=== PATIENT | male | born 1985 | race Hispanic/Latino ===

== ENCOUNTER 2017-11-02 16:34 | Inpatient (IN) | payer MEDICAID ==
--- NOTE | 2017-11-02 17:36 | C.PDOC ---
History Of Present Illness 31 y/o male hx IV heroin and a non productive cough for 1 week presents to the ED for detox. The patient states that today was the last day of use. The patient denies SI and HI thoughts, and hallucinations. Time Seen by Provider: 11/02/17 17:01 Chief Complaint (Nursing): Medical Clearance History Per: Patient History/Exam Limitations: other (substance abuse ) Onset/Duration Of Symptoms: Days Current Symptoms Are (Timing): Still Present Additional History Per: Patient Past Medical History Reviewed: Historical Data, Nursing Documentation, Vital Signs Vital Signs: Last Vital Signs Temp 98.7 F 11/02/17 16:46 Pulse 76 11/02/17 16:46 Resp 20 11/02/17 16:46 BP 113/76 11/02/17 16:46 Pulse Ox 100 11/02/17 18:48 - Medical History PMH: Atrial Fibrillation Surgical History: No Surg Hx Family History: States: No Known Family Hx - Social History Hx Alcohol Use: Yes Hx Substance Use: Yes - Immunization History Hx Tetanus Toxoid Vaccination: No Hx Influenza Vaccination: No Hx Pneumococcal Vaccination: No Review Of Systems Except As Marked, All Systems Reviewed And Found Negative. Constitutional: Negative for: Fever Cardiovascular: Negative for: Chest Pain Respiratory: Positive for: Cough (nonproductive for 1 week ) Gastrointestinal: Negative for: Nausea, Vomiting, Abdominal Pain Skin: Negative for: Rash Psych: Positive for: Other (no HI thoughts, and hallucinations). Negative for: Suicidal ideation Physical Exam - Physical Exam Appears: Non-toxic Skin: Warm, Dry Head: Atraumatic, Normacephalic Eye(s): bilateral: Normal Inspection Oral Mucosa: Moist Throat: Normal, No Erythema Neck: Supple Chest: Symmetrical, No Tenderness Cardiovascular: Rhythm Regular Respiratory: Normal Breath Sounds, No Rales, No Rhonchi Gastrointestinal/Abdominal: Soft, No Tenderness, No Guarding, No Rebound Back: No CVA Tenderness Extremity: No Tenderness, Capillary Refill (2<sec.), Other (track esteban on both arms ) Neurological/Psych: Oriented x3, Normal Motor, Normal Sensation, Normal Reflexes ED Course And Treatment - Laboratory Results Result Diagrams: 11/02/17 18:25 11/02/17 18:25 O2 Sat by Pulse Oximetry: 100 (RA) - Other Rad Chest X-ray X-Ray: Viewed By Me Interpretation: HISTORY: Detox/Psy. COMPARISON: None available. TECHNIQUE: Chest PA and lateral. FINDINGS: LUNGS: No focal consolidation. Please note that chest x-ray has limited sensitivity for the detection of pulmonary masses. PLEURA: No significant pleural effusion identified. No definite pneumothorax . CARDIOVASCULAR: The cardiomediastinal silhouette appears within normal limits of size. OSSEOUS STRUCTURES: No acute osseous abnormality identified. VISUALIZED UPPER ABDOMEN: Unremarkable. OTHER FINDINGS: None. IMPRESSION: No focal consolidation, significant pleural effusion, or definite pneumothorax identified. Progress Note: Chest X-ray was performed. Patient is afebrile and asymptomatic. Disposition - Disposition Disposition Time: 19:00 Condition: STABLE Forms: appening (Slovenian) - Clinical Impression Clinical Impression: Substance abuse, Alcohol abuse - Scribe Statement The provider has reviewed the documentation as recorded by the Vandana Coker Physician Patient Turnover Patient Signed Over To: Lenka Ferrari Handoff Comments: pending labs and crisis evaluation
--- NOTE | 2017-11-02 18:21 | RAD ---
HISTORY: Detox/Psy COMPARISON: None available. TECHNIQUE: Chest PA and lateral FINDINGS: LUNGS: No focal consolidation. Please note that chest x-ray has limited sensitivity for the detection of pulmonary masses. PLEURA: No significant pleural effusion identified. No definite pneumothorax . CARDIOVASCULAR: The cardiomediastinal silhouette appears within normal limits of size. OSSEOUS STRUCTURES: No acute osseous abnormality identified. VISUALIZED UPPER ABDOMEN: Unremarkable. OTHER FINDINGS: None. IMPRESSION: No focal consolidation, significant pleural effusion, or definite pneumothorax identified.
[2017-11-02 18:28] LABS: BASO % 0.5 % (0.0-2.0); EOS # 0.2 K/uL (0.0-0.7); EOS % 2.7 % (0.0-4.0); HEMOGLOBIN 13.6 g/dL (12.0-18.0); LYMPH # 3.2 K/uL (1.0-4.3); MEAN CELL VOLUME 90.8 fL (80.0-94.0); MEAN CORPUSCULAR HEMOGLOBIN 31.1 pg (27.0-31.0); MEAN CORPUSCULAR HGB CONC 34.2 g/dL (33.0-37.0); MEAN PLATELET VOLUME 7.6 fL (7.2-11.7); MONO # 0.5 K/uL (0.0-0.8); MONO % 5.4 % (0.0-10.0); NEUT # 4.5 K/uL (1.8-7.0); NEUT % 53.4 % (50.0-75.0); RBC 4.37 Mil/uL (4.40-5.90); RED CELL DISTRIBUTION WIDTH 13.4 % (11.5-14.5); WHITE BLOOD COUNT 8.4 K/uL (4.8-10.8)
[2017-11-02 18:40] LABS: ALB/GLOB RATIO 1.3 (1.0-2.1); ALBUMIN 4.2 g/dL (3.5-5.0); ALT/SGPT 30 U/L (21-72); AST/SGOT 21 U/L (17-59); BLOOD UREA NITROGEN 13 mg/dL (9-20); CALCIUM 8.5 mg/dl (8.6-10.4); GFR AFRICAN-AMERICAN > 60; GFR NON-AFRICAN AMERICAN > 60
[2017-11-02 19:01] LABS: URINE BILIRUBIN NEGATIVE (NEGATIVE); URINE BLOOD NEGATIVE (NEGATIVE); URINE CLARITY Clear (Clear); URINE COLOR Yellow (YELLOW); URINE GLUCOSE (UA) NORMAL (Normal); URINE LEUKOCYTE ESTERASE NEG Leu/uL (Negative); URINE NITRATE NEGATIVE (NEGATIVE); URINE PROTEIN NEGATIVE (NEGATIVE); URINE UROBILINOGEN NORMAL mg/dL (0.2-1.0)
[2017-11-02 19:03] LABS: BARBITURATES, UR NEGATIVE (NEGATIVE); PHENCYCLIDINE, UR NEGATIVE (NEGATIVE)
[2017-11-02 19:06] LABS: BENZODIAZEPINES, UR POSITIVE (NEGATIVE); OPIATES, UR POSITIVE (NEGATIVE)
--- NOTE | 2017-11-02 20:22 | PCM.BM ---
<Roxana Askew - Last Filed: 11/02/17 20:21> Treatment Plan Problems - Problems identified on initial assessmt Potential for alcohol withdrawal Date Initiated: 11/02/17 Time Initiated: 20:21 Assessment reference: NA Status: Active Priority: 1 Potential for opiate withdrawal Date Initiated: 11/02/17 Time Initiated: 20:21 Assessment reference: NA Status: Active Priority: 2 Treatment assets and liabiliti Patient Assests: ADL independent, negotiates basic needs, cognitively intact Patient Liabilities: substance abuse (ETOH,OPIATES) - Milieu Protocol Maintain good personal hygiene: daily Encourage regular showers, daily Remind patient to perform daily oral care, daily Assist patient to perform ADL's Conduct patient checks and document Observation sheet: Q15 minutes Maintain personal safety: every shift Educate patient to report safety concerns to staff, every shift Monitor environment for contraband/sharps Medication safety: Monitor for expected outcome, potential side effects: every shift, Assess barriers to learning: every shift, Assess readiness for medication education: every shift <Tamia Bajwa - Last Filed: 11/05/17 00:13> - Diagnosis (1) Opioid use disorder, severe, dependence Status: Acute Interventions: 11/05/17 00:13 * Assess 7x/week regarding severity of withdrawal * Educate regarding risks, benefits, side effects and alternatives of medications * Use Motivational Interviewing for abstinence * Use CBT for relapse prevention * Medication management for withdrawal symptoms * Encourage medication assisted treatment * (2) Alcohol abuse Status: Acute Interventions: 11/05/17 00:13 * Assess 7x/week regarding severity of withdrawal * Educate regarding risks, benefits, side effects and alternatives of medications * Use Motivational Interviewing for abstinence * Use CBT for relapse prevention * Medication management for withdrawal symptoms * Encourage medication assisted treatment *
[2017-11-02] MEDS ORDERED: Aluminum Hydroxide/Magnesium Hydroxide Susp (30 mL) PO PRN (20:33)
--- NOTE | 2017-11-03 13:53 | PCM.PSYCH ---
Initial Psychiatric Evaluation - Initial Psychiatric Evaluation Type of Admission: Voluntary Legal Status: Capacity Chief Complaint (in patient's own words): "Heroin" History of Present Illness and Precipitating Events: The pt is seen. chart reviewed and case discussed He is a 31 y/o WM, single, no child, no job, lives with GM and father. He is using 30 bags IV heroin "on and off" 11 years. He also uses cocaine iv but less, and alcohol various amounts x 2 years. Denies alcohol wdw, seizures, DTs but has wdw sxs from heroin Smokes 1.5 ppd cigarettes Denies other drugs Detox 3x, rehab 3-4 x and longest sobriety 1 year No psych sxs reported Past psych hx: Hx of ADHD but no meds, stable Family psych hx: Fa, uncle and GF had alcohol problems Medical hx: Past hx of Afib but stable now. No other illness, hep C negative Current Medications: Active Medications Generic Name Dose Route Start Last Admin Trade Name Freq PRN Reason Stop Dose Admin Al Hydrox/Mg Hydrox/Simethicone 30 ml 11/02/17 20:33 Maalox 30 Ml PO TID PRN Indigestion / Heartburn Aspirin 81 mg 11/03/17 10:00 11/03/17 10:18 Aspirin Chewable PO 81 mg DAILY SHARI Administration Clonidine HCl 0.1 mg 11/02/17 20:33 Catapres PO Q8 PRN COWS Score More or Equal to 5 Hydroxyzine HCl 50 mg 11/02/17 20:34 11/02/17 21:25 Atarax PO 50 mg Q6H PRN Administration Anxiety Ibuprofen 600 mg 11/02/17 20:34 Motrin Tab PO Q6H PRN Pain, moderate (4-7) Loperamide HCl 2 mg 11/02/17 20:33 Imodium PO Q8 PRN Diarrhea Nicotine 1 patch 11/03/17 10:00 11/03/17 10:18 Nicoderm Cq TD 1 patch DAILY SHARI Administration Ondansetron HCl 4 mg 11/02/17 20:33 Zofran Tab PO Q8 PRN Nausea/Vomiting Trazodone HCl 100 mg 11/02/17 20:34 11/02/17 21:25 Desyrel PO 100 mg HS PRN Administration Insomnia Past Psychiatric History - Past Psychiatric History Previous Treatment History: None Pertinent Medical Hx (Current Medical&Sleep Prob, Allergies): Allergies Allergy/AdvReac Type Severity Reaction Status Date / Time No Known Allergies Allergy Unverified 11/02/17 16:51 No Known Home Med 11/02/17 Review of Systems - Neurological Neurological: UNREMARKABLE - Psychiatric Psychiatric: Abnormal Sleep Pattern, Anxiety, Difficulty Concentrating. absent : Hallucinations, Homicidal Ideation, Suicidal Ideation Mental Status Examination - Personal Presentation Personal Presentation: Looks stated age - Affect Affect: Constricted - Motor Activity Motor Activity: Calm - Reliability in Providing Information Reliability in Providing Information: Good - Speech Speech: Organized - Mood Mood: Anxious - Formal Thought Process Formal Thought Process: No Impairment - Cognitive Functions Orientation: Person, Place, Situation, Time Sensorium: Alert Attention/Concentration: Attentive Estimate of Intelligence: Average Judgement: Intact, as evidence by: Insight regarding need for hospitalization Memory: Recent intact, as evidence by: Ability to recall events of the day, Remote intact, as evidenced by: Abilit to recall sig. life events - Risk Risk: Withdrawal, Diminished functioning - Strength & Assets Inventory Strength & Assets Inventory: Cooperative - Limitations Limitations: Other DSM 5 DX - DSM 5 DSM 5 Diagnosis: Opioid withdrawal Opioid use d/o -severe Cocaine use d/o - severe Tobacco use d/o - severe Alcohol use d/o -moderate - Recommended/Plan of Treatment Treatment Recommendations and Plan of Treatment: Subutex detox As needed medications All risks, benefits and alternatives of medications, including no medications, discussed and the patient understood and agreed. Attend groups and activities Supportive therapy and psychoeducation [place] for abstinence CBT for relapse prevention Encourage MAT Refer to rehab or IOP Attend self-help groups as well 34 min Projected ELOS: 4-5 days Prognosis: good Discharge Plan and Discharge Criteria: Rehab at [facility]
[2017-11-03] MEDS ORDERED: Buprenorphine Hydrochloride 2 mg SL ONE ×2 (15:27→16:30)
[2017-11-04] MEDS: Buprenorphine Hydrochloride 2 mg SL SCH (09:39)
--- NOTE | 2017-11-04 13:08 | PCM.PYCHPN ---
Psychiatric Progress Note - Psychiatric Progress Note Patient seen today, length of contact: 16 min Patient Chief Complaint: "I can't sleep, have restless leg" Problems Identified/Issues Discussed: The pt is seen, chart reviewed, case discussed with staff. The pt is compliant with medications and reports no side-effects. Symptoms are improving but needs more time to stabilize. After care discussed, support and psychoeducation given. Medication Change: Yes (detox changes daily) Medical Record Reviewed: Yes Mental Status Examination - Cognitive Function Orientation: Person, Place, Situation, Time - Mood Mood: Anxious - Affect Affect: Constricted - Speech Speech: Appropriate - Formal Thought Process Formal Thought Process: No Impairment - Suicidal Ideation Suicidal Ideation: No - Homicidal Ideation Homicidal Ideation: No Goal/Treatment Plan - Goal/Treatment Plan Need for Continued Stay: Discharge may exacerbated symptoms, Severe functional impairment Progress Toward Problem(s) and Goals/Treatment Plan: Subutex detox As needed medications All risks, benefits and alternatives of medications, including no medications, discussed and the patient understood and agreed. Attend groups and activities Supportive therapy and psychoeducation [place] for abstinence CBT for relapse prevention Encourage MAT Refer to rehab or IOP Attend self-help groups as well
[2017-11-05] MEDS: Buprenorphine Hydrochloride 2 mg SL SCH (09:33)
--- NOTE | 2017-11-05 10:43 | CARD ---
APPROVED REPORT EKG Measurement Heart [id number] <Conclusion> Normal sinus rhythm Normal ECG
--- NOTE | 2017-11-05 14:00 | PCM.PYCHPN ---
Psychiatric Progress Note - Psychiatric Progress Note Patient seen today, length of contact: 16 min Patient Chief Complaint: "I slept better" Problems Identified/Issues Discussed: The pt is seen, chart reviewed, case discussed with staff. Support given, CBT and KS used briefly No new symptoms reported, improving slowly and needs more time No SEs from medications, risks discussed. After care discussed Medication Change: Yes (detox changes daily) Medical Record Reviewed: Yes Mental Status Examination - Cognitive Function Orientation: Person, Place, Situation, Time Memory: Intact Attention: WNL Concentration: WNL Association: WNL Fund of Knowledge: WNL - Mood Mood: Anxious - Affect Affect: Constricted - Speech Speech: Appropriate - Formal Thought Process Formal Thought Process: No Impairment - Suicidal Ideation Suicidal Ideation: No - Homicidal Ideation Homicidal Ideation: No Goal/Treatment Plan - Goal/Treatment Plan Need for Continued Stay: Discharge may exacerbated symptoms, Severe functional impairment Progress Toward Problem(s) and Goals/Treatment Plan: Subutex detox As needed medications All risks, benefits and alternatives of medications, including no medications, discussed and the patient understood and agreed. Attend groups and activities Supportive therapy and psychoeducation [place] for abstinence CBT for relapse prevention Encourage MAT Refer to rehab or IOP Attend self-help groups as well
[2017-11-05 15:41] VITALS: RESP 18
--- NOTE | 2017-11-06 08:41 | PCM.PYCHDC ---
Mental Status Examination - Mental Status Examination Orientation: Person, Place, Situation, Time Memory: Intact Mood: Anxious Affect: Constricted Speech: Appropriate Attention: WNL Concentration: WNL Association: WNL Fund of Knowledge: WNL Formal Thought Process: No Impairment Suicidal Ideation: No Current Homicidal Ideation?: No Discharge Summary - Discharge Note Reason for Hospitalization: Alcohol and opioid detox Consultations:: List each consultation separately and include: 1. Reason for request. 2. Findings. 3. Follow-up Summary of Hospital Course include:: 1. Description of specific treatment plan utilized for patients during their course of treatmen. 2. Summarize the time- course for resolution of acute symptoms and/or regressed behaviors. 3. Describe issues identified and worked on during hospitalization. 4. Describe medication utilized. 5. Describe medical problems identified and treated. 6. Reassessment of suicide risk Summary of Hospital Course: The pt is seen. chart reviewed and case discussed On admission: He is a 31 y/o WM, single, no child, no job, lives with GM and father. He is using 30 bags IV heroin "on and off" 11 years. He also uses cocaine iv but less, and alcohol various amounts x 2 years. Denies alcohol wdw, seizures, DTs but has wdw sxs from heroin Smokes 1.5 ppd cigarettes Denies other drugs Detox 3x, rehab 3-4 x and longest sobriety 1 year No psych sxs reported Past psych hx: Hx of ADHD but no meds, stable Family psych hx: Fa, uncle and GF had alcohol problems Medical hx: Past hx of Afib but stable now. No other illness, hep C negative Hospital course: The pt was admitted and started on treatment with psychotherapy, support, psychoeducation and medications. UT and CBT used. The pt attended groups and activities, as well as milieu therapy. All the risks and benefits of medications are discussed and the patient understood and agreed. He didn't need alcohol detox The pt improved with the treatments provided. After care discussed with the patient. He went to [facility] in - Final Diagnosis (DSM 5) Condition upon Discharge: IMPROVED DSM 5: Opioid withdrawal Opioid use d/o -severe Cocaine use d/o - severe Tobacco use d/o - severe Alcohol use d/o -moderate Disposition: REHAB FACILITY/REHAB UNIT Follow-up Treatment Plan: Continue below medications after discharge. Follow after care plan as discussed. Use relapse prevention skills Return to ER or call 911 if suicidal, homicidal or symptoms relapse. Stay away from stress, alcohol and drugs. See primary doctor regularly and get labs. Prescriptions/Medication Reconciliation: Aspirin [Aspirin Chewable] 81 mg PO DAILY #30 chew Gabapentin [Neurontin] 300 mg PO BID #60 cap QUEtiapine [Seroquel] 100 mg PO HS #30 tab - Smoking Cessation Smoking Cessation Medication prescribed: No - Antipsychotic Medications Pt discharged on 2 or more routine antipsychotic medications: No
[2017-11-06] MEDS: Buprenorphine Hydrochloride 2 mg SL SCH (10:11)
[2017-11-06 10:34] VITALS: BP 118/79; PULSE 85; TEMP 98.9; O2SAT 97
== END 2017-11-06 10:15 | disposition home or self-care (01) | DRG 745 ==
LOC: C.ER 16:34 → C.7D 19:26
PROVIDERS: ADMIT Psychiatry & Neurology Psychiatry; ATTEND Psychiatry & Neurology Psychiatry
PROC: HZ2ZZZZ Detoxification Services for Substance Abuse Treatment (ICD-10-PCS; principal; 2017-11-03)
PROC: HZ52ZZZ Individual Psychotherapy for Substance Abuse Treatment, Cognitive-Behavioral (ICD-10-PCS; 2017-11-03)
PROC: HZ42ZZZ Group Counseling for Substance Abuse Treatment, Cognitive-Behavioral (ICD-10-PCS; 2017-11-03)
PROC: HZ59ZZZ Individual Psychotherapy for Substance Abuse Treatment, Supportive (ICD-10-PCS; 2017-11-03)
PROC: HZ56ZZZ Individual Psychotherapy for Substance Abuse Treatment, Psychoeducation (ICD-10-PCS; 2017-11-03)
PROC: HZ46ZZZ Group Counseling for Substance Abuse Treatment, Psychoeducation (ICD-10-PCS; 2017-11-03)
DX: F11.23 Opioid dependence with withdrawal (principal); F14.20 Cocaine dependence, uncomplicated; I48.91 Unspecified atrial fibrillation; F17.210 Nicotine dependence, cigarettes, uncomplicated; F10.10 Alcohol abuse, uncomplicated; Y90.0 Blood alcohol level of less than 20 mg/100 ml

== ENCOUNTER 2017-11-26 15:18 | Emergency (ER) | payer MEDICAID ==
[2017-11-26 15:44] VITALS: BP 142/86; PULSE 109; RESP 20; TEMP 98.8; O2SAT 98
--- NOTE | 2017-11-26 16:20 | C.PDOC ---
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 Patient states he slipped on wet floor and twisted his right knee. Patient states he felt a pop and is complaining of "discomfort" to the area. Denies direct trauma, instability, swelling, or Hx of chronic right knee pain. 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 PS SLIPPED ON WET FLOOR, TWISTED R KNEE. DENIES DIRECT TRAUMA. FELT POP. CO "DISCOMFORT" TO AREA. DENIES INSTABLITY, SWELL. DENIES HO CHRONIC R KNEE PAIN EXAM NAD EXT R KNEE AROM WO DIFF. MILD ANT EFFUSION. AROM WO DIFF. NO INSTABILITY. NO FOCAL TEND SKIN INTACT NO ERYTHEMA ATRAUM GAIT ALMOST FULL WT BEAR WO DIF Time Seen by Provider: 11/26/17 16:00 Chief Complaint (Nursing): Lower Extremity Problem/Injury History/Exam Limitations: no limitations Onset/Duration Of Symptoms: Mins, Sudden Onset Current Symptoms Are (Timing): Still Present Recent travel outside of the [place]: No - Knee Description Of Injury: Twisted Past Medical History Reviewed: Historical Data, Nursing Documentation, Vital Signs Vital Signs: Last Vital Signs Temp 98.8 F 11/26/17 15:42 Pulse 109 H 11/26/17 15:42 Resp 20 11/26/17 15:42 BP 142/86 11/26/17 15:42 Pulse Ox 98 11/26/17 16:20 - Medical History PMH: Atrial Fibrillation - [facility] Procedures DETOXIFICATION SERVICES FOR SUBSTANCE ABUSE TREATMENT (11/02/17) GROUP HEAD SAWYER FOR SUBSTANCE ABUSE TREATMENT, PSYCHOEDUCATION (11/02/17) GROUP HEAD SAWYER FOR SUBSTANCE ABUSE, COGNITIVE BEHAVIORAL (11/02/17) INDIV PSYCHOTHERAPY FOR SUBSTANCE ABUSE TREATMENT, SUPPORT (11/02/17) INDIV PSYCHOTHERAPY FOR SUBSTANCE ABUSE, COGNITIV BEHAVIORAL (11/02/17) INDIV PSYCHOTHERAPY FOR SUBSTANCE ABUSE, PSYCHOEDUCATION (11/02/17) Family History: States: Unknown Family Hx - Social History Hx Alcohol Use: No Hx Substance Use: Yes (RECOVERING ADDICT) - Immunization History Hx Tetanus Toxoid Vaccination: No Hx Influenza Vaccination: No Hx Pneumococcal Vaccination: No Review Of Systems Except As Marked, All Systems Reviewed And Found Negative. Musculoskeletal: Positive for: Leg Pain Skin: Negative for: Lesions, Bruising Neurological: Negative for: Weakness, Numbness Physical Exam - Physical Exam Appears: Non-toxic, No Acute Distress Skin: Normal Color, Warm, Dry Head: Atraumatic, Normacephalic Eye(s): bilateral: Normal Inspection Extremity: Normal ROM (x4), Capillary Refill (<2 seconds), Other (Right knee with mild anterior effusion. No instability, erythema, or focal tenderness.) Pulses: Left Dorsalis Pedis: Normal, Right Dorsalis Pedis: Normal Neurological/Psych: Oriented x3, Normal Speech, Normal Motor, Normal Sensation Gait: Steady (Almost full weight bearing without difficulty) ED Course And Treatment O2 Sat by Pulse Oximetry: 98 Medical Decision Making Medical Decision Making: Plan: * Motrin Disposition Counseled Patient/Family Regarding: Diagnosis, Need For Followup, Rx Given - Disposition Referrals: [facility] [Outside] [facility] [Outside] Disposition: HOME/ ROUTINE Disposition Time: 16:19 Condition: GOOD Prescriptions: Naproxen [Naprosyn] 1 tab PO BID PRN #25 tab PRN Reason: Pain Instructions: Knee Sprain (ED) Forms: [facility] (Kiswahili), Work Excuse - Clinical Impression Clinical Impression: Knee sprain - Scribe Statement The provider has reviewed the documentation as recorded by the Scribe Simon Sheets All medical record entries made by the Scribe were at my direction and personally dictated by me. I have reviewed the chart and agree that the record accurately reflects my personal performance of the history, physical exam, medical decision making, and the department course for this patient. I have also personally directed, reviewed, and agree with the discharge instructions and disposition.
== END 2017-11-26 16:31 | disposition home or self-care (01) ==
LOC: C.ER 15:18
DX: S83.91XA Sprain of unspecified site of right knee, initial encounter (principal); W01.0XXA Fall on same level from slipping, tripping and stumbling without subsequent striking against object, initial encounter; I48.91 Unspecified atrial fibrillation

== ENCOUNTER 2018-02-02 09:35 | Emergency (ER) | payer MEDICAID ==
[2018-02-02 10:06] VITALS: BP 131/78; PULSE 98; RESP 16; TEMP 98
--- NOTE | 2018-02-02 10:06 | C.PDOC ---
History Of Present Illness 32 y/o male presents to ED requesting detox from heroin. Patient states last used was earlier today and denies history of withdrawal seizures, suicidal ideation, homicidal ideation or any physical complaints at this time. Time Seen by Provider: 02/02/18 10:04 Chief Complaint (Nursing): Substance Abuse History Per: Patient History/Exam Limitations: no limitations Onset/Duration Of Symptoms: Days Current Symptoms Are (Timing): Still Present Suicide/Self Injury Attempted (Context): None Past Medical History Reviewed: Historical Data, Nursing Documentation, Vital Signs Vital Signs: Last Vital Signs Temp 98.0 F 02/02/18 10:03 Pulse 98 H 02/02/18 10:03 Resp 16 02/02/18 10:03 BP 131/78 02/02/18 10:03 Pulse Ox 97 02/02/18 10:03 - Medical History PMH: Atrial Fibrillation Surgical History: No Surg Hx - [facility] Procedures DETOXIFICATION SERVICES FOR SUBSTANCE ABUSE TREATMENT (11/02/17) GROUP FOOD AND DRINK FACTORY WORKERS FOR SUBSTANCE ABUSE TREATMENT, PSYCHOEDUCATION (11/02/17) GROUP FOOD AND DRINK FACTORY WORKERS FOR SUBSTANCE ABUSE, COGNITIVE BEHAVIORAL (11/02/17) INDIV PSYCHOTHERAPY FOR SUBSTANCE ABUSE TREATMENT, SUPPORT (11/02/17) INDIV PSYCHOTHERAPY FOR SUBSTANCE ABUSE, COGNITIV BEHAVIORAL (11/02/17) INDIV PSYCHOTHERAPY FOR SUBSTANCE ABUSE, PSYCHOEDUCATION (11/02/17) Family History: States: No Known Family Hx - Social History Hx Alcohol Use: No Hx Substance Use: Yes (RECOVERING ADDICT) - Immunization History Hx Tetanus Toxoid Vaccination: No Hx Influenza Vaccination: No Hx Pneumococcal Vaccination: No Review Of Systems Constitutional: Negative for: Fever, Chills Gastrointestinal: Negative for: Nausea, Vomiting Skin: Negative for: Rash Psych: Negative for: Anxiety, Withdrawal Physical Exam - Physical Exam Appears: Non-toxic, No Acute Distress Skin: Warm, Dry Head: Atraumatic, Normacephalic Eye(s): bilateral: Normal Inspection Oral Mucosa: Moist Neck: Normal ROM, Supple Cardiovascular: Rhythm Regular Respiratory: Normal Breath Sounds, No Rales, No Rhonchi, No Wheezing Gastrointestinal/Abdominal: Soft, No Tenderness, No Guarding, No Rebound Extremity: Normal ROM, Capillary Refill (<2 seconds) Neurological/Psych: Oriented x3, Normal Speech, Normal Cognition ED Course And Treatment O2 Sat by Pulse Oximetry: 100 (RA) Pulse Ox Interpretation: Normal Medical Decision Making Medical Decision Making: Plan: D/w crisis , no detox beds available. Patient d/c and instructed to call detox tomorrow Disposition Counseled Patient/Family Regarding: Diagnosis, Need For Followup - Disposition Disposition: HOME/ ROUTINE Disposition Time: 10:05 Condition: STABLE Additional Instructions: Follow up as indicated by the crisis team. You can call Shanel at [phone] Instructions: Drug Abuse and Drug Addiction (DC) Forms: General Discharge Instructions, Work Excuse - POA Present On Arrival: None - Clinical Impression Clinical Impression: Drug dependence - Scribe Statement The provider has reviewed the documentation as recorded by the Scribe Jesus Adams All medical record entries made by the Scribe were at my direction and personally dictated by me. I have reviewed the chart and agree that the record accurately reflects my personal performance of the history, physical exam, medical decision making, and the department course for this patient. I have also personally directed, reviewed, and agree with the discharge instructions and disposition.
[2018-02-02 16:53] VITALS: O2SAT 100
== END 2018-02-02 10:15 | disposition home or self-care (01) ==
LOC: C.ER 09:35
DX: F19.20 Other psychoactive substance dependence, uncomplicated (principal)

== ENCOUNTER 2018-02-09 17:54 | Inpatient (IN) | payer MEDICAID ==
[2018-02-09 19:17] LABS: BASO % 0.5 % (0.0-2.0); EOS # 0.1 K/uL (0.0-0.7); EOS % 1.3 % (0.0-4.0); HEMOGLOBIN 14.6 g/dL (12.0-18.0); LYMPH # 2.7 K/uL (1.0-4.3); LYMPH % 32.7 % (20.0-40.0); MEAN CELL VOLUME 92.3 fL (80.0-94.0); MEAN CORPUSCULAR HEMOGLOBIN 31.6 pg (27.0-31.0); MEAN CORPUSCULAR HGB CONC 34.3 g/dL (33.0-37.0); MEAN PLATELET VOLUME 7.4 fL (7.2-11.7); MONO # 0.6 K/uL (0.0-0.8); MONO % 7.1 % (0.0-10.0); NEUT # 4.7 K/uL (1.8-7.0); NEUT % 58.4 % (50.0-75.0); NRBC % 0.1 % (0.0-2.0); RBC 4.62 Mil/uL (4.40-5.90); RED CELL DISTRIBUTION WIDTH 13.2 % (11.5-14.5); WHITE BLOOD COUNT 8.1 K/uL (4.8-10.8)
[2018-02-09 19:30] LABS: ALB/GLOB RATIO 1.2 (1.0-2.1); ALBUMIN 4.3 g/dL (3.5-5.0); ALT/SGPT 18 U/L (21-72); AST/SGOT 21 U/L (17-59); BLOOD UREA NITROGEN 13 mg/dL (9-20); GFR AFRICAN-AMERICAN > 60; GFR NON-AFRICAN AMERICAN > 60
--- NOTE | 2018-02-09 19:39 | C.PDOC ---
History Of Present Illness 32 year old male presents to the ED requesting detox for alcohol. Patient was prescreened prior to coming to the ED. Patient denies SI/HI, hallucinations, CP , SOB, abdominal pain. Time Seen by Provider: 02/09/18 18:19 Chief Complaint (Nursing): Substance Abuse History Per: Patient History/Exam Limitations: intoxication Onset/Duration Of Symptoms: Hrs Current Symptoms Are (Timing): Still Present Suicide/Self Injury Attempted (Context): None Modifying Factor(s): Alcohol Associated Symptoms: denies: Depression, Suicidal Thoughts, Suicidal Plan Recent travel outside of the [place]: No Additional History Per: Patient Past Medical History Reviewed: Historical Data, Nursing Documentation, Vital Signs Vital Signs: Last Vital Signs Temp 97.4 F L 02/09/18 18:05 Pulse 101 H 02/09/18 18:05 Resp 16 02/09/18 18:05 BP 106/60 02/09/18 18:05 Pulse Ox 95 02/09/18 19:39 - Medical History PMH: Atrial Fibrillation Denies: Diabetes, Hepatitis, HIV, HTN, Seizures, Sexually Transmitted Disease Surgical History: No Surg Hx - [facility] DETOXIFICATION SERVICES FOR SUBSTANCE ABUSE TREATMENT (11/02/17) GROUP ADVERTISING WRITER FOR SUBSTANCE ABUSE TREATMENT, PSYCHOEDUCATION (11/02/17) GROUP ADVERTISING WRITER FOR SUBSTANCE ABUSE, COGNITIVE BEHAVIORAL (11/02/17) INDIV PSYCHOTHERAPY FOR SUBSTANCE ABUSE TREATMENT, SUPPORT (11/02/17) INDIV PSYCHOTHERAPY FOR SUBSTANCE ABUSE, COGNITIV BEHAVIORAL (11/02/17) INDIV PSYCHOTHERAPY FOR SUBSTANCE ABUSE, PSYCHOEDUCATION (11/02/17) Family History: States: Unknown Family Hx - Social History Hx Alcohol Use: Yes Hx Substance Use: Yes (RECOVERING ADDICT) - Immunization History Hx Tetanus Toxoid Vaccination: No Hx Influenza Vaccination: No Hx Pneumococcal Vaccination: No Review Of Systems Constitutional: Negative for: Fever, Chills Cardiovascular: Negative for: Chest Pain Respiratory: Negative for: Shortness of Breath Skin: Negative for: Rash Neurological: Negative for: Weakness, Numbness Psych: Negative for: Depression, Suicidal ideation Physical Exam - Physical Exam Appears: Non-toxic, No Acute Distress, Other (AOB, thin) Skin: Normal Color, Warm, Dry Head: Atraumatic, Normacephalic Eye(s): bilateral: Normal Inspection Nose: No Discharge Oral Mucosa: Moist Neck: Normal ROM, Supple Chest: Symmetrical Cardiovascular: Rhythm Regular, No Murmur Respiratory: Normal Breath Sounds, No Rales, No Rhonchi, No Wheezing Gastrointestinal/Abdominal: Soft, No Tenderness, No Guarding, No Rebound Extremity: Normal ROM, No Tenderness, No Swelling Neurological/Psych: Oriented x3 Gait: Steady ED Course And Treatment - Laboratory Results Result Diagrams: 02/09/18 19:12 02/09/18 19:12 Lab Interpretation: Abnormal (ETOH 87) O2 Sat by Pulse Oximetry: 95 (ON RA) Pulse Ox Interpretation: Normal Reevaluation Time: 20:35 Reassessment Condition: Improved - Physician Consult Information Outcome Of Conversation: 2030: d/w Crisis, ok to Detox Medical Decision Making Medical Decision Making: Plan: * Labs * UA * Crisis Disposition Doctor Will See Patient In The: Hospital Counseled Patient/Family Regarding: Studies Performed, Diagnosis - Disposition Disposition: HOSPITALIZED Disposition Time: 20:35 Condition: GOOD Forms: [facility] (Belarusian) - Clinical Impression Clinical Impression: Alcohol abuse - Scribe Statement The provider has reviewed the documentation as recorded by the Scribe Juan Jose Villegas All medical record entries made by the Scribe were at my direction and personally dictated by me. I have reviewed the chart and agree that the record accurately reflects my personal performance of the history, physical exam, medical decision making, and the department course for this patient. I have also personally directed, reviewed, and agree with the discharge instructions and disposition.
[2018-02-09 20:08] LABS: URINE BACTERIA OCC (<OCC); URINE BILIRUBIN NEGATIVE (NEGATIVE); URINE BLOOD NEGATIVE (NEGATIVE); URINE CLARITY Hazy (Clear); URINE COLOR Yellow (YELLOW); URINE GLUCOSE (UA) NORMAL (Normal); URINE LEUKOCYTE ESTERASE NEG Leu/uL (Negative); URINE PROTEIN NEGATIVE (NEGATIVE)
[2018-02-09 20:34] LABS: BARBITURATES, UR NEGATIVE (NEGATIVE); PHENCYCLIDINE, UR NEGATIVE (NEGATIVE)
[2018-02-09 20:38] LABS: BENZODIAZEPINES, UR POSITIVE (NEGATIVE); OPIATES, UR POSITIVE (NEGATIVE)
--- NOTE | 2018-02-09 20:49 | PCM.BM ---
<Manasa Christianson - Last Filed: 02/09/18 20:48> Treatment Plan Problems - Problems identified on initial assessmt potiential for opiate withdrawal Date Initiated: 02/09/18 Time Initiated: 20:48 Assessment reference: NA Status: Active Treatment assets and liabiliti Patient Assests: ADL independent, physically healthy, negotiates basic needs, cognitively intact Patient Liabilities: substance abuse - Milieu Protocol Maintain good personal hygiene: daily Encourage regular showers, daily Remind patient to perform daily oral care, daily Assist patient to perform ADL's Maintain personal safety: every shift Educate patient to report safety concerns to staff, every shift Monitor environment for contraband/sharps Medication safety: Monitor for expected outcome, potential side effects: every shift, Assess barriers to learning: every shift, Assess readiness for medication education: every shift <Shanel Sharma - Last Filed: 02/10/18 14:16> Family Contact Family involvement: Famliy/SO not involved - Goals for Treatment Patient goals for treatment: Complete detox and discuss aftercare options with counseling staff. Discharge/Continuing Care - Education Needs Education Needs: Patient Medication, Patient Diagnosis/Disease Process, Patient Coping Skills, Patient Anger Management skills, Patient Placement options, Patient Community resources - Discharge Discharge Criteria: No longer exhibiting s/s of withdrawal, Reduction of target symptoms Discharge to:: Other - Additional Comments 02/10/18 14:15 02/10/18 14:17 Pt. is undecided about aftercare at this time. - Treatment Team Participation Patient/Family/SO Statement: "I don't know what I wanna do yet. I got time to think about it..." 02/10/18 14:15 Discussed with Family/SO: No Was Patient/Family/SO present at Treatment Team Meeting: Yes <Tamia Bajwa - Last Filed: 02/12/18 13:20> - Diagnosis (1) Opioid use disorder, severe, dependence Status: Acute Interventions: 02/12/18 13:20 * Assess 7x/week regarding severity of withdrawal * Educate regarding risks, benefits, side effects and alternatives of medications * Use Motivational Interviewing for abstinence * Use CBT for relapse prevention * Medication management for withdrawal symptoms * Encourage medication assisted treatment *
[2018-02-09] MEDS ORDERED: Aluminum Hydroxide/Magnesium Hydroxide Susp (30 mL) PO PRN (22:06)
--- NOTE | 2018-02-10 14:49 | PCM.PSYCH ---
Initial Psychiatric Evaluation - Initial Psychiatric Evaluation Type of Admission: Voluntary Legal Status: Capacity Chief Complaint (in patient's own words): "I need help again" History of Present Illness and Precipitating Events: The pt is seen. chart reviewed and case discussed He is a 32 y/o WM, single, no child, no job, lives with GM and father. He left [facility] after 2 months as he relapsed a month ago and they found that out. He is known from a previous detox here, in Oct 2017. He has been using 30 bags IV heroin "on and off" for 11 years. Now he does 20 bags by intranasally. He also uses cocaine iv but less, and alcohol various amounts x 2 years. Denies alcohol wdw, seizures, DTs but has wdw sxs from heroin Smokes 1.5 ppd cigarettes Denies other drugs Detox 4x, rehab 3-4 x and longest sobriety 1 year No psych sxs reported Past psych hx: Hx of ADHD but no meds, stable Family psych hx: Fa, uncle and GF had alcohol problems Medical hx: Past hx of Afib but stable now. No other illness, hep C negative Current Medications: Active Medications Generic Name Dose Route Start Last Admin Trade Name Freq PRN Reason Stop Dose Admin Al Hydrox/Mg Hydrox/Simethicone 30 ml 02/09/18 22:06 Maalox 30 Ml PO TID PRN Indigestion / Heartburn Aspirin 81 mg 02/10/18 10:00 02/10/18 10:10 Aspirin Chewable PO 81 mg DAILY SHARI Administration Clonidine HCl 0.1 mg 02/09/18 22:06 Catapres PO Q8 PRN COWS Score More or Equal to 5 Hydroxyzine HCl 25 mg 02/09/18 22:07 Atarax PO Q6 PRN Anxiety Ibuprofen 600 mg 02/09/18 21:57 02/09/18 22:04 Motrin Tab PO 600 mg Q6 PRN Administration Pain Loperamide HCl 2 mg 02/09/18 22:06 Imodium PO Q8 PRN Diarrhea Ondansetron HCl 4 mg 02/09/18 22:06 Zofran Tab PO Q8 PRN Nausea/Vomiting Pseudoephedrine HCl 60 mg 02/09/18 22:06 Sudafed Tab PO QID PRN Nasal/Sinus Congestion Quetiapine Fumarate 100 mg 02/09/18 22:20 02/09/18 22:25 Seroquel PO 100 mg HS PRN Administration insomnia Past Psychiatric History - Past Psychiatric History Previous Treatment History: None Pertinent Medical Hx (Current Medical&Sleep Prob, Allergies): Allergies Allergy/AdvReac Type Severity Reaction Status Date / Time No Known Allergies Allergy Verified 02/09/18 18:07 Aspirin [Aspirin Chewable] 81 mg PO DAILY #30 chew 11/05/17 Review of Systems - Neurological Neurological: UNREMARKABLE - Psychiatric Psychiatric: Abnormal Sleep Pattern, Anxiety, Difficulty Concentrating. absent : Hallucinations, Homicidal Ideation, Paranoia, Suicidal Ideation Mental Status Examination - Personal Presentation Personal Presentation: Looks stated age - Affect Affect: Broad - Motor Activity Motor Activity: Calm - Reliability in Providing Information Reliability in Providing Information: Good - Speech Speech: Organized - Mood Mood: Anxious - Formal Thought Process Formal Thought Process: No Impairment - Cognitive Functions Orientation: Person, Place, Situation, Time Sensorium: Alert Attention/Concentration: Attentive Estimate of Intelligence: Average Judgement: Intact, as evidence by: Insight regarding need for hospitalization Memory: Recent intact, as evidence by: Ability to recall events of the day, Remote intact, as evidenced by: Abilit to recall sig. life events - Risk Risk: Withdrawal, Diminished functioning - Strength & Assets Inventory Strength & Assets Inventory: Cooperative - Limitations Limitations: Other DSM 5 DX - DSM 5 DSM 5 Diagnosis: Opioid withdrawal Opioid use d/o -severe Cocaine use d/o - severe Tobacco use d/o - severe Alcohol use d/o -moderate - Recommended/Plan of Treatment Treatment Recommendations and Plan of Treatment: Subutex detox As needed medications All risks, benefits and alternatives of medications, including no medications, discussed and the patient understood and agreed. Attend groups and activities Supportive therapy and psychoeducation [place] for abstinence CBT for relapse prevention Encourage MAT Refer to rehab or IOP/MAT Attend self-help groups as well Smoking cessation started, patch if needed 34 min Projected ELOS: 4-5 days Prognosis: good - Smoking Cessation Smoking Cessation Initiated: Yes
[2018-02-10] MEDS ORDERED: Buprenorphine Hydrochloride 2 mg SL ONE ×2 (21:30→22:22)
[2018-02-11] MEDS ORDERED: Buprenorphine Hydrochloride 2 mg SL SCH (10:00)
[2018-02-11] MEDS ORDERED: Buprenorphine Hydrochloride 2 mg SL ONE (12:11)
--- NOTE | 2018-02-11 12:54 | PCM.PYCHPN ---
Psychiatric Progress Note - Psychiatric Progress Note Patient seen today, length of contact: 16 min Patient Chief Complaint: "I want to go to [facility] tomorrow" Problems Identified/Issues Discussed: The pt is seen, chart reviewed, case discussed with staff. The pt is compliant with medications and reports no side-effects. Symptoms are improving but needs more time to stabilize. After care discussed, support and psychoeducation given. He wanted to take lower dose of sbx so he could go to [facility] tomorrow He is not accepted yet, and also he may test positive as it is too soon. He is also at risk to wdw b/c of speedy detox He understood all but still asked for lower dose. Medication Change: Yes (detox adjusted) Medical Record Reviewed: Yes Mental Status Examination - Cognitive Function Orientation: Person, Place, Situation, Time Memory: Intact Attention: WNL Concentration: WNL Association: WNL Fund of Knowledge: WNL - Mood Mood: Anxious - Affect Affect: Broad - Speech Speech: Appropriate - Formal Thought Process Formal Thought Process: No Impairment - Suicidal Ideation Suicidal Ideation: No - Homicidal Ideation Homicidal Ideation: No Goal/Treatment Plan - Goal/Treatment Plan Need for Continued Stay: Discharge may exacerbated symptoms, Severe functional impairment Progress Toward Problem(s) and Goals/Treatment Plan: Subutex detox As needed medications All risks, benefits and alternatives of medications, including no medications, discussed and the patient understood and agreed. Attend groups and activities Supportive therapy and psychoeducation [place] for abstinence CBT for relapse prevention Encourage MAT Refer to rehab or IOP/MAT Attend self-help groups as well Smoking cessation started, patch if needed
--- NOTE | 2018-02-12 06:20 | PCM.PYCHDC ---
Mental Status Examination - Mental Status Examination Orientation: Person, Place, Situation, Time Memory: Intact Mood: Anxious Affect: Constricted Speech: Appropriate Attention: WNL Concentration: WNL Association: WNL Fund of Knowledge: WNL Formal Thought Process: No Impairment Suicidal Ideation: No Current Homicidal Ideation?: No Discharge Summary - Discharge Note Reason for Hospitalization: Opioid detox Consultations:: List each consultation separately and include: 1. Reason for request. 2. Findings. 3. Follow-up Summary of Hospital Course include:: 1. Description of specific treatment plan utilized for patients during their course of treatmen. 2. Summarize the time- course for resolution of acute symptoms and/or regressed behaviors. 3. Describe issues identified and worked on during hospitalization. 4. Describe medication utilized. 5. Describe medical problems identified and treated. 6. Reassessment of suicide risk Summary of Hospital Course: The pt is seen. chart reviewed and case discussed On admission: He is a 32 y/o WM, single, no child, no job, lives with and father. He left [facility] after 2 months as he relapsed a month ago and they found that out. He is known from a previous detox here, in Oct 2017. He has been using 30 bags IV heroin "on and off" for 11 years. Now he does 20 bags by intranasally. He also uses cocaine iv but less, and alcohol various amounts x 2 years. Denies alcohol wdw, seizures, DTs but has wdw sxs from heroin Smokes 1.5 ppd cigarettes Denies other drugs Detox 4x, rehab 3-4 x and longest sobriety 1 year No psych sxs reported Past psych hx: Hx of ADHD but no meds, stable Family psych hx: Fa, uncle and GF had alcohol problems Medical hx: Past hx of Afib but stable now. No other illness, hep C negative Hospital course: The pt was admitted and started on treatment with psychotherapy, support, psychoeducation and medications. [place] and CBT used. The pt attended groups and activities, as well as milieu therapy. All the risks and benefits of medications are discussed and the patient understood and agreed. The pt improved with the treatments provided. After care discussed with the patient. He is going back to [facility] in . They accepted him despit ehaving been d/c'ed for use (outside) - Final Diagnosis (DSM 5) Condition upon Discharge: GOOD DSM 5: Opioid withdrawal Opioid use d/o -severe Cocaine use d/o - severe Tobacco use d/o - severe Alcohol use d/o -moderate Disposition: REHAB FACILITY/REHAB UNIT Follow-up Treatment Plan: Continue below medications after discharge. Follow after care plan as discussed. Use relapse prevention skills Return to ER or call 911 if suicidal, homicidal or symptoms relapse. Stay away from stress, alcohol and drugs. See primary doctor regularly and get labs. Prescriptions/Medication Reconciliation: RX: Aspirin [Aspirin Chewable] 81 mg PO DAILY #30 chew RX: QUEtiapine [Seroquel] 100 mg PO HS PRN #30 tab PRN Reason: insomnia - Smoking Cessation Smoking Cessation Medication prescribed: No - Antipsychotic Medications Pt discharged on 2 or more routine antipsychotic medications: No
[2018-02-12] MEDS ORDERED: Buprenorphine Hydrochloride 2 mg SL ONE ×2 (08:36→09:45)
[2018-02-12 08:49] VITALS: BP 111/73; PULSE 99; RESP 20; TEMP 98.6; O2SAT 96
== END 2018-02-12 10:00 | disposition home or self-care (01) | DRG 745 ==
LOC: C.ER 17:54 → C.7D 20:34
PROVIDERS: ADMIT Psychiatry & Neurology Psychiatry; ATTEND Psychiatry & Neurology Psychiatry
PROC: HZ2ZZZZ Detoxification Services for Substance Abuse Treatment (ICD-10-PCS; principal; 2018-02-09)
DX: F11.23 Opioid dependence with withdrawal (principal); F14.90 Cocaine use, unspecified, uncomplicated; F17.210 Nicotine dependence, cigarettes, uncomplicated; F90.9 Attention-deficit hyperactivity disorder, unspecified type; I48.91 Unspecified atrial fibrillation; F10.120 Alcohol abuse with intoxication, uncomplicated; Y90.3 Blood alcohol level of 60-79 mg/100 ml